=== PATIENT | female | born 1995 | race Two or more races ===

== ENCOUNTER 2018-12-08 07:43 | Emergency (ER) | payer OTHER ==
[~2018-12-08] VITALS: Ht 157.5 cm; Wt 68.0 kg
[2018-12-08 08:11] VITALS: BP 125/80
[2018-12-08] MEDS ORDERED: KETOROLAC TROMETH 60MG/2ML VIAL IM ONE (08:45)
== END 2018-12-08 09:23 | disposition home or self-care (01) ==
LOC: ER 07:47
DX: T75.4XXA Electrocution, initial encounter (principal); M79.642 Pain in left hand; W86.8XXA Exposure to other electric current, initial encounter; Y93.89 Activity, other specified; Y92.89 Other specified places as the place of occurrence of the external cause; Y99.8 Other external cause status
CPT/HCPCS: 93005; 96372; 99283; J1885